=== PATIENT | female | born 1995 | race American Indian/Alaskan Native ===

== ENCOUNTER 2020-06-30 10:06 | Emergency (ER) | payer MEDICAID ==
[2020-06-30 10:30] VITALS: BP 111/51
[2020-06-30 10:57] LABS: Basophils % (Auto) 0.8 % (0.0-1.8); Eosinophils # (Auto) 0.1 K/mm3 (0.0-0.4); Eosinophils % (Auto) 2.1 % (0.0-4.3); Hematocrit 34.6 % (30.3-42.9); Hemoglobin 11.9 gm/dl (10.1-14.3); Lymphocytes # (Auto) 1.7 K/mm3 (1.2-5.4); Lymphocytes % (Auto) 28.5 % (13.4-35.0); Mean Corpuscular HGB Conc 34 % (30-34); Mean Corpuscular Volume 95 fl (79-97); Monocytes # (Auto) 0.5 K/mm3 (0.0-0.8); Monocytes % (Auto) 8.7 % (0.0-7.3); Platelet Count 208 K/mm3 (140-440); Red Blood Count 3.64 M/mm3 (3.65-5.03); Red Cell Distribution Width 13.2 % (13.2-15.2)
[2020-06-30 11:05] LABS: Bilirubin,Urine NEG (Negative); Blood,Urine NEG (Negative); Color,Urine Yellow (Yellow); Mucus,Urine 3+ /HPF; Protein,Urine <15 mg/dL mg/dL (Negative); Urobilinogen,Urine < 2.0 mg/dL (<2.0)
[2020-06-30 11:17] LABS: Alanine Aminotransferase 8 units/L (7-56); Albumin 3.8 g/dL (3.9-5); Blood Urea Nitrogen 6 mg/dL (7-17); Calcium 9.1 mg/dL (8.4-10.2); Hemolysis Index 18
[2020-06-30 11:20] LABS: BUN/Creatinine Ratio 9
--- NOTE | 2020-06-30 11:34 | Emergency Department Report ---
HPI - General Chief Complaint: Abdominal Pain Time Seen by Provider: 06/30/20 11:11 - HPI HPI: This is a 24-year-old female who presents to the emergency department with a complaint of some nausea without vomiting, some lower abdominal and/or pelvic cramping, and missing her last menstrual cycle with concern for . Patient's last menstrual cycle was May 18. She says that she took a home test that was "indeterminant." She denies any vaginal bleeding, discharge, dysuria, fever. Otherwise she does not have any past medical h istory. She has not taken anything for symptoms prior to presentation. No known aggravating or alleviating factors. She does not have an [facility] SUPER[facility]OR. ED Past Medical Hx - Past Medical History Previous Medical History?: Yes Hx Asthma: Yes - Surgical History Past Surgical History?: No - Medications Home Medications: Home Medications Medication Instructions Recorded Confirmed Last Taken Type Vit-Fe Fumar-FA [ 1 tab PO QDAY #30 tablet 06/30/20 Unknown Rx Vitamin] ED Review of Systems ROS: Stated complaint: PREG/NOT FEELING WELL Other details as noted in HPI Comment: All other systems reviewed and negative Constitutional: denies: chills, fever Respiratory: denies: shortness of breath Cardiovascular: denies: chest pain Gastrointestinal: abdominal pain, nausea. denies: vomiting Genitourinary: denies: dysuria, discharge Musculoskeletal: denies: back pain, arthralgia Neurological: denies: headache, weakness Physical Exam - Physical Exam Vital Signs: Vital Signs 06/30/20 10:28 Temperature 98.5 F Pulse Rate 76 Respiratory 15 Rate Blood Pressure 111/51 O2 Sat by Pulse 99 Oximetry Physical Exam: GENERAL: The patient is well-developed well-nourished. HENT: Normocephalic. Atraumatic. Patient has moist mucous membranes. EYES: Extraocular motions are intact. NECK: Supple. Trachea is midline. CHEST/LUNGS: Clear to auscultation. There is no respiratory distress noted. HEART/CARDIOVASCULAR: Regular. There is no tachycardia. ABDOMEN: Abdomen is soft, nontender. Patient has normal bowel sounds. There is no abdominal distention. SKIN: Skin is warm and dry. NEURO: The patient is awake, alert, and oriented. The patient is cooperative. Normal speech. MUSCULOSKELETAL: There is no tenderness or deformity. ED Course Vital Signs 06/30/20 10:28 Temperature 98.5 F Pulse Rate 76 Respiratory 15 Rate Blood Pressure 111/51 O2 Sat by Pulse 99 Oximetry - Reevaluation(s) Reevaluation #1: 06/30/20 14:18 Lab Results 06/30/20 06/30/20 06/30/20 Range/Units 10:38 10:38 10:38 WBC 5.8 (4.5-11.0) K/mm3 RBC 3.64 L (3.65-5.03) M/mm3 Hgb 11.9 (10.1-14.3) gm/dl Hct 34.6 (30.3-42.9) % MCV 95 (79-97) fl MCH 33 H (28-32) pg MCHC 34 (30-34) % RDW 13.2 (13.2-15.2) % Plt Count 208 (140-440) K/mm3 Lymph % (Auto) 28.5 (13.4-35.0) % [place] % (Auto) 8.7 H (0.0-7.3) % Eos % (Auto) 2.1 (0.0-4.3) % Baso % (Auto) 0.8 (0.0-1.8) % Lymph # (Auto) 1.7 (1.2-5.4) K/mm3 [place] # (Auto) 0.5 (0.0-0.8) K/mm3 Eos # (Auto) 0.1 (0.0-0.4) K/mm3 Baso # (Auto) 0.0 (0.0-0.1) K/mm3 Seg Neutrophils % 59.9 (40.0-70.0) % Seg Neutrophils # 3.5 (1.8-7.7) K/mm3 Sodium 136 L (137-145) mmol/L Potassium 3.8 (3.6-5.0) mmol/L Chloride 102.1 (98-107) mmol/L Carbon Dioxide 25 (22-30) mmol/L Anion Gap 13 mmol/L BUN 6 L (7-17) mg/dL Creatinine 0.7 (0.6-1.2) mg/dL Estimated GFR > 60 ml/min BUN/Creatinine Ratio 9 % Glucose 85 (65-100) mg/dL Calcium 9.1 (8.4-10.2) mg/dL Total Bilirubin 0.30 (0.1-1.2) mg/dL AST 12 (5-40) units/L ALT 8 (7-56) units/L Alkaline Phosphatase 47 (35-129) units/L Total Protein 6.6 (6.3-8.2) g/dL Albumin 3.8 L (3.9-5) g/dL Albumin/Globulin Ratio 1.4 % HCG, Qual Positive (Negative) HCG, Quant (0-4) mIU/mL Urine Color (Yellow) Urine Turbidity (Clear) Urine pH (5.0-7.0) Ur Specific [place] (1.003-1.030) Urine Protein (Negative) mg/dL Urine Glucose (UA) (Negative) mg/dL Urine Ketones (Negative) mg/dL Urine Blood (Negative) Urine Nitrite (Negative) Urine Bilirubin (Negative) Urine Urobilinogen (<2.0) mg/dL Ur Leukocyte Esterase (Negative) Urine WBC (Auto) (0.0-6.0) /HPF Urine RBC (Auto) (0.0-6.0) /HPF U Epithel Cells (Auto) (0-13.0) /HPF Urine Mucus /HPF 06/30/20 06/30/20 Range/Units 10:38 10:42 WBC (4.5-11.0) K/mm3 RBC (3.65-5.03) M/mm3 Hgb (10.1-14.3) gm/dl Hct (30.3-42.9) % MCV (79-97) fl MCH (28-32) pg MCHC (30-34) % RDW (13.2-15.2) % Plt Count (140-440) K/mm3 Lymph % (Auto) (13.4-35.0) % [place] % (Auto) (0.0-7.3) % Eos % (Auto) (0.0-4.3) % Baso % (Auto) (0.0-1.8) % Lymph # (Auto) (1.2-5.4) K/mm3 [place] # (Auto) (0.0-0.8) K/mm3 Eos # (Auto) (0.0-0.4) K/mm3 Baso # (Auto) (0.0-0.1) K/mm3 Seg Neutrophils % (40.0-70.0) % Seg Neutrophils # (1.8-7.7) K/mm3 Sodium (137-145) mmol/L Potassium (3.6-5.0) mmol/L Chloride (98-107) mmol/L Carbon Dioxide (22-30) mmol/L Anion Gap mmol/L BUN (7-17) mg/dL Creatinine (0.6-1.2) mg/dL Estimated GFR ml/min BUN/Creatinine Ratio % Glucose (65-100) mg/dL Calcium (8.4-10.2) mg/dL Total Bilirubin (0.1-1.2) mg/dL AST (5-40) units/L ALT (7-56) units/L Alkaline Phosphatase (35-129) units/L Total Protein (6.3-8.2) g/dL Albumin (3.9-5) g/dL Albumin/Globulin Ratio % HCG, Qual (Negative) HCG, Quant 62127 H (0-4) mIU/mL Urine Color Yellow (Yellow) Urine Turbidity Clear (Clear) Urine pH 6.0 (5.0-7.0) Ur Specific [place] 1.025 (1.003-1.030) Urine Protein <15 mg/dl (Negative) mg/dL Urine Glucose (UA) Neg (Negative) mg/dL Urine Ketones Neg (Negative) mg/dL Urine Blood Neg (Negative) Urine Nitrite Neg (Negative) Urine Bilirubin Neg (Negative) Urine Urobilinogen < 2.0 (<2.0) mg/dL Ur Leukocyte Esterase Neg (Negative) Urine WBC (Auto) 3.0 (0.0-6.0) /HPF Urine RBC (Auto) 1.0 (0.0-6.0) /HPF U Epithel Cells (Auto) 4.0 (0-13.0) /HPF Urine Mucus 3+ /HPF ED Medical Decision Making - Lab Data Result diagrams: 06/30/20 10:38 06/30/20 10:38 - Radiology Data Radiology results: report reviewed ULTRASOUND OBSTETRIC INDICATION: First trimester with abdominal and pelvic pain. TECHNIQUE: Transvaginal. COMPARISON: None available. FINDINGS: GESTATIONAL SAC: Well-defined oval shape and intrauterine in location. YOLK SAC: No significant abnormality. EMBRYO/FETUS: No significant abnormality. - [place]- Rump Length = 0.3 cm = 5 weeks, 6 day(s). - Heart Rate = 98 beats per minute. ADNEXA: Possible evolving right ovary corpus luteum measuring 2.2 x 2.0 cm. No other significant abnormality. FREE FLUID: None. ADDITIONAL FINDINGS: None. IMPRESSION: 1. Single, living intrauterine with estimated sonographic age of 5 weeks, 6 day(s). - Medical Decision Making Patient presents to the emergency department with complaint of some mild lower abdominal and pelvic discomfort and missing her last menstrual cycle. Initially patient was found to be by qualitative serum test. A quantitative was done that came back at 20,000. ultrasound shows a live intrauterine at about 5 weeks and 6 days without any other significant abnormalities. Patient has been started on vitamins and given multiple outpatient referrals for [facility] groups. She will return to the ER with any worsening of her symptoms or with any acute distress. No vaginal bleeding. Critical Care Time: No Critical care attestation.: If time is entered above; I have spent that time in minutes in the direct care of this critically ill patient, excluding procedure time. ED Disposition Clinical Impression: Qualifiers: Weeks of gestation: less than 8 weeks Qualified Code(s): Z3A.01 - Less than 8 weeks gestation of Disposition: DC-01 TO HOME OR SELFCARE Is pt being admited?: No Condition: Stable Instructions: (ED) Additional Instructions: Please follow-up with your [facility] SUPER[facility]OR in the next few days. I have given you a referral for a few different local [facility]PER[facility] groups in the area. Please do not drink any alcohol or smoke any cigarettes while . Do not take any medications unless prescribed by a physician who knows that you are currently . Return to the emergency department with any worsening of your symptoms, new or concerning symptoms not addressed during this current emergency department visit, or with any acute distress. Prescriptions: Vit-Fe Fumar-FA [ Vitamin] 1 tab PO QDAY #30 tablet Referrals: [facility] [Provider Group] - 3-5 Days [facility] [Provider Group] - 3-5 Days [facility] [Provider Group] - 3-5 Days Time of Disposition: 13:43
[2020-06-30] MEDS ORDERED: ONDANSETRON 4 MG ODT TAB PO ONE (13:06)
--- NOTE | 2020-06-30 13:33 | Ultrasound Report ---
ULTRASOUND OBSTETRIC INDICATION: First trimester with abdominal and pelvic pain. TECHNIQUE: Transvaginal. COMPARISON: None available. FINDINGS: GESTATIONAL SAC: Well-defined oval shape and intrauterine in location. YOLK SAC: No significant abnormality. EMBRYO/FETUS: No significant abnormality. - [place]-Rump Length = 0.3 cm = 5 weeks, 6 day(s). - Heart Rate = 98 beats per minute. ADNEXA: Possible evolving right ovary corpus luteum measuring 2.2 x 2.0 cm. No other significant abno rmality. FREE FLUID: None. ADDITIONAL FINDINGS: None. IMPRESSION: 1. Single, living intrauterine with estimated sonographic age of 5 weeks, 6 day(s). Signer Name: Jorge Alberto Dong MD Signed: 06/30/2020 1:29 PM Workstation Name: [email or web address]
--- NOTE | 2020-06-30 13:33 | Ultrasound Report ---
ULTRASOUND OBSTETRIC INDICATION: First trimester with abdominal and pelvic pain. TECHNIQUE: Transvaginal. COMPARISON: None available. FINDINGS: GESTATIONAL SAC: Well-defined oval shape and intrauterine in location. YOLK SAC: No significant abnormality. EMBRYO/FETUS: No significant abnormality. - [place]-Rump Length = 0.3 cm = 5 weeks, 6 day(s). - Heart Rate = 98 beats per minute. ADNEXA: Possible evolving right ovary corpus luteum measuring 2.2 x 2.0 cm. No other significant abno rmality. FREE FLUID: None. ADDITIONAL FINDINGS: None. IMPRESSION: 1. Single, living intrauterine with estimated sonographic age of 5 weeks, 6 day(s). Signer Name: Jorge Alberto Dong MD Signed: 06/30/2020 1:29 PM Workstation Name: [email or web address]
== END 2020-06-30 14:44 | disposition home or self-care (01) ==
LOC: ED 10:06
DX: O26.891 Other specified pregnancy related conditions, first trimester (principal); Z3A.01 Less than 8 weeks gestation of pregnancy
CPT/HCPCS: 36415; 76801; 76817; 80053; 81001; 84702; 84703; 85025; Q0162